=== PATIENT | female | born 1960 | race Caucasian/White ===

== ENCOUNTER 2024-08-08 14:01 | Outpatient (CLI) | payer BC ==
[~2024-08-08 14:01] MED LIST: Iopamidol 300 61% 100 ML VIAL FS ONE
== END 2024-08-08 14:02 | disposition home or self-care (01) ==
LOC: CSHCT 14:01
PROVIDERS: ATTEND Nurse Practitioner Family
DX: N28.9 Disorder of kidney and ureter, unspecified (principal); N28.1 Cyst of kidney, acquired
CPT/HCPCS: 36415; 74170; 82565